=== PATIENT | male | born 2000 | race Caucasian/White ===

== ENCOUNTER 2021-07-24 14:10 | Emergency (ER) | payer OTHER, MEDICAID, SELFPAY ==
[2021-07-24 14:20] VITALS: BP 140/86; PULSE 105; RESP 20; TEMP 36.9; O2SAT 98; BMI 34.7
--- NOTE | 2021-07-24 14:24 | ED_ITS ---
HPI - Trauma General Chief Complaint: Extremity Injury, Upper Stated Complaint: Possibly broken finger-rt hand Time Seen by Provider: 07/24/21 14:20 History of Present Illness HPI narrative: 20-year-old male nonsmoker with noncontributory medical history presents with family in the chief complaint of a ground level fall with an injury to his right 5th finger. He was on a boat and slipped on a wet deck and landed on his hand. He has pain with range of motion and improvement with rest. He denies any numbness, tingling or weakness. He denies any other injury. He has no history of the same. Related Data Home Medications Medication Instructions Recorded Confirmed No Known Home Medications 07/24/21 07/24/21 Allergies Allergy/AdvReac Type Severity Reaction Status Date / Time No Known Drug Allergies Allergy Verified 07/24/21 14:26 Review of Systems Review of Systems Narrative: GENERAL: Denies chills, fatigue, malaise, fever, sweats. HEENT: Denies sinus pain, ear pain, sore throat, difficulty swallowing, dizziness. RESPIRATORY: Denies dyspnea, cough, wheezing, hemoptysis, sputum. CARDIOVASCULAR: Denies chest pain, palpitations, orthopnea, edema, GASTROINTESTINAL: Denies nausea, vomiting, abdominal pain, diarrhea, constipation, melena. : Denies dysuria, frequency, incontinence, hematuria, urinary retention. MUSCULOSKELETAL: See HPI SKIN: Denies rash, skin lesions, or other NEUROLOGIC: Denies weakness, headache, numbness, change in speech, confusion, seizures, incoordination. PSYCHIATRIC: No concerning psychosocial issues. 12 point review of systems is negative except for those stated above Patient History Social History Smoking Status: Current every day smoker Exam Narrative Exam Narrative: GEN: AOx3 and in mild distress EYES: Pupils are equal, round, and reactive to light and accommodation. Extraoccular muscles are intact bilaterally. There is no subconjunctival hemorrhage or exudate. CHEST: Lungs are clear to auscultation bilaterally and free of wheezes, rales, or rhonchi. Heart rate is regular rhythm, there are no murmurs, clicks, rubs, or gallops. There is no chest wall tenderness. ABD: Abdomen is soft and nontender. There is no guarding or rebound. Bowel sounds are normal in all 4 quadrants. There is no mass or organomegaly. EXT: Pain, swelling and mild ecchymosis of right 5th finger with deformity. Decreased range of motion secondary to pain. Sensation intact, cap refill less than 2 seconds. No obvious break in the skin. No pain proximal to the metacarpophalangeal joint. SKIN: Warm, pink, and dry. No erythema or rash Initial Vital Signs Initial Vital Signs: Vital Signs Temperature 98.5 F 07/24/21 14:20 Pulse Rate 105 H 07/24/21 14:20 Respiratory Rate 20 07/24/21 14:20 Blood Pressure 140/86 07/24/21 14:20 Pulse Oximetry 98 07/24/21 14:20 Procedures Orthopedic Splinting/Casting Injury #1: Upper Extremity Injury Location: finger Upper Extremity Immobilizer: ulnar gutter Post splinting neuro exam: intact Post splinting vascular exam: intact Placed by: Nursing Course Orders Ordered: ED Orders 07/24/21 14:27 XR finger RT min 2V Stat Consultations Consultation #1: call to Dr. Silva (electronic [facility] ortho) reviewed case and recommends splint and follow up Vital Signs Vital signs: Vital Signs - 8 hr 07/24/21 14:20 Temperature 98.5 F Pulse Rate 105 H Respiratory Rate 20 Blood Pressure 140/86 Pulse Oximetry 98 MDM - Trauma Imaging Data Extremity x-ray #1: Radiologist's Impression: Cayden Patel??20??M??2000 ? Allergy/Adv: No Known Drug Allergies Close Finger X-Ray (Signed) Sukhwinder Mckeon - 07/24/21 Launch?[address] [address] XRay Report Signed Patient: Cayden Patel MR#: [id number] : 2000 Acct:[id number] Age/Sex: 20 / M Date of Service: 07/24/21 Loc: ED Accession Number: [id number] ?? Procedure: XR finger RT min 2V Ordering Provider: Gabino Levin D.O. PROCEDURE:? XR FINGER RT MIN 2V ? INDICATIONS:? fall ? TECHNIQUE:? AP hand, 2 views of the 5th finger(s) acquired.? ? COMPARISON:? None. ? FINDINGS:? ? Bones:? There is a mildly displaced fracture seen involving the proximal aspect of the proximal phalanx of the 5th finger.? Mild intra-articular involvement can be seen. ? No additional fractures are detected. ? Soft tissues:? No suspicious soft tissue calcifications.? IMPRESSION:? Proximal 5th finger fracture, with intra-articular involvement. ? ? Dictated by: Sukhwinder Mckeon M.D. on 07/24/2021 at 14:09 ? ? Approved by: Sukhwinder Mckeon M.D. on 07/24/2021 at 14:10 ? Discharge Plan Departure Patient Disposition: Home Clinical Impression: Finger fracture, right Qualifiers: Encounter type: initial encounter Finger: little finger Fracture type: closed Phalanx: proximal Fracture alignment: displaced Qualified Code(s): S62.616A - Displaced fracture of proximal phalanx of right little finger, initial encounter for closed fracture Instructions: DI for Finger Fracture Activity Restrictions/Additional Instructions: *You have been diagnosed with [right pinky finger fracture (minimally displaced proximal phalanx 5th finger ( *What to do: *Please continue to take your regular medications as directed. [ ] New medication prescriptions sent to your pharmacy: [ ] [ ] New medication written as a paper prescription [x] Tylenol and occasional Motrin for pain *Please follow up with Dr. Roger Silva] of [facility] in 2-3 days, call for an appointment. Let them know you were seen in the Emergency Department and that we ask that you be seen in follow up. We will electronically transmit a record of today's note if your PCP is in our system *Return to Emergency Department if you should have any new, worsening or concerning symptoms, such as [worsening pain, significant swelling, cold extremities, numbness, tingling, weakness or other bothersome symptoms Splint Care: Keep splint clean and dry. Elevated affected body part to decrease swelling. OK to use ice pack on the affected body part. Use for 15-20 minutes each time, for 5-6x per day. If you develop worsening pain, numbness, tingling, discoloration of the affected body part, loosen the splint by loosening the JAKY wrap, and either see your doctor for an urgent re-assessment, or return to the Emergency Department. Return to the Emergency Department for any new or worsening symptoms. Prescriptions: No Action No Known Home Medications RF: 0 Referrals: Jamie Mckeon MD [Primary Care Provider] - Rudolph Silva MD [Physician] -
--- NOTE | 2021-07-24 14:27 | DI.RAD.S_ITS ---
PROCEDURE: XR FINGER RT MIN 2V INDICATIONS: fall TECHNIQUE: AP hand, 2 views of the 5th finger(s) acquired. COMPARISON: None. FINDINGS: Bones: There is a mildly displaced fracture seen involving the proximal aspect of the proximal phalanx of the 5th finger. Mild intra-articular involvement can be seen. No additional fractures are detected. Soft tissues: No suspicious soft tissue calcifications. IMPRESSION: Proximal 5th finger fracture, with intra-articular involvement. Dictated by: Sukhwinder Mckeon M.D. on 07/24/2021 at 14:09 Approved by: Sukhwinder Mckeon M.D. on 07/24/2021 at 14:10
== END 2021-07-24 15:13 | disposition home or self-care (01) ==
PROVIDERS: Emergency Provider Emergency Medicine; Family Provider Orthopaedic Surgery; PCP Family Medicine
DX: S62.616A Displaced fracture of proximal phalanx of right little finger, initial encounter for closed fracture (principal); W01.0XXA Fall on same level from slipping, tripping and stumbling without subsequent striking against object, initial encounter
CPT/HCPCS: 73140; 99283

== ENCOUNTER → 2022-09-19 16:01 | Outpatient (ROUT) | payer OTHER, MEDICAID, SELFPAY ==
[2022-09-19 16:17] LABS: Appearance Urine UA CLEAR; Bilirubin Urine UA NEGATIVE (NEGATIVE); Color Urine UA YELLOW; Glucose Urine UA NEGATIVE (Negative); Ketones Urine UA NEGATIVE (NEGATIVE); Leukocyte Esterase Urine UA NEGATIVE (NEGATIVE); Nitrite Urine UA NEGATIVE (Negative); Occult Blood Urine UA NEGATIVE (Negative); Protein Urine UA NEGATIVE (Negative); Urobilinogen Urine UA 0.2 E.U./dL (0.2); pH Urine UA 6.5 (4.5-8.0)
[2022-09-19 16:26] LABS: Bacteria Urine None Seen; Culture Indicated Urine Cult Not Indicated; RBC Urine None Seen (0-5/HPF); WBC Urine None Seen (0-5/HPF)
== END ==
PROVIDERS: Family Provider Orthopaedic Surgery; PCP Family Medicine; Visit Provider Family Medicine
DX: R31.0 Gross hematuria (principal)
CPT/HCPCS: 81001

== ENCOUNTER → 2022-09-22 15:14 | Outpatient (ROUT) | payer OTHER, MEDICAID, SELFPAY ==
[2022-09-22 16:17] LABS: COVID-19 CEPHEID 4-PLEX PCR Negative (Negative); Influenza A - CEPHEID Flu A NEGATIVE (NEGATIVE); Influenza B - CEPHEID Flu B NEGATIVE (NEGATIVE); Respiratory Syncytial Virus Negative (Negative)
== END ==
PROVIDERS: Family Provider Orthopaedic Surgery; PCP Family Medicine; Visit Provider Registered Nurse
DX: J02.9 Acute pharyngitis, unspecified (principal); Z20.822 Contact with and (suspected) exposure to COVID-19
CPT/HCPCS: 0241U